=== PATIENT | female | born 1970 | race Caucasian/White ===

== ENCOUNTER 2023-10-06 09:23 | Emergency (ER) | payer MEDICAID ==
[~2023-10-06] VITALS: Ht 157.5 cm; Wt 64.0 kg
[2023-10-06 09:33] VITALS: O2SAT 98
[2023-10-06] MEDS ORDERED: METH-653 MT (13:09)
[2023-10-06] MEDS ORDERED: IBUP-2029 MT (13:09)
[2023-10-06 13:34] VITALS: BP 134/77; PULSE 82; RESP 14; TEMP 97.9
== END 2023-10-06 13:37 | disposition home or self-care (01) ==
LOC: ER 09:23
DX: S16.1XXA Strain of muscle, fascia and tendon at neck level, initial encounter (principal); S20.211A Contusion of right front wall of thorax, initial encounter; S09.90XA Unspecified injury of head, initial encounter; V49.9XXA Car occupant (driver) (passenger) injured in unspecified traffic accident, initial encounter; Y93.9 Activity, unspecified; Y92.89 Other specified places as the place of occurrence of the external cause; Y99.8 Other external cause status
CPT/HCPCS: 71101; 81025; 99284